=== PATIENT | male | born 1975 | race Caucasian/White ===

== ENCOUNTER 2021-11-14 11:44 | Outpatient (CLI) | payer OTHER | END 2021-11-14 11:45 | disposition home or self-care (01) | LOC: NAV RAD 11:44 | PROVIDERS: ATTEND Family Medicine | DX: Z02.71 Encounter for disability determination (principal); M47.26 Other spondylosis with radiculopathy, lumbar region; Z98.890 Other specified postprocedural states | CPT/HCPCS: 72100 ==